=== PATIENT | female | born 1995 | race American Indian/Alaskan Native ===

== ENCOUNTER 2021-01-05 19:10 | Emergency (ER) | payer MEDICAID, OTHER ==
[2021-01-05 19:53] VITALS: BP 133/63
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
[2021-01-05] MEDS ORDERED: ACETAMINOPHEN 500 MG TAB PO ONE (21:20)
[2021-01-05] MEDS ORDERED: IBUPROFEN 600 MG TAB PO ONE (21:20)
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
== END 2021-01-05 23:42 | disposition home or self-care (01) ==
LOC: ED 19:10
DX: S13.9XXA Sprain of joints and ligaments of unspecified parts of neck, initial encounter (principal); S73.192A Other sprain of left hip, initial encounter; S00.83XA Contusion of other part of head, initial encounter; M62.830 Muscle spasm of back; M54.5 Low back pain; F17.200 Nicotine dependence, unspecified, uncomplicated; Z98.890 Other specified postprocedural states; Z79.899 Other long term (current) drug therapy; V29.9XXA Motorcycle rider (driver) (passenger) injured in unspecified traffic accident, initial encounter; Y93.89 Activity, other specified; Y92.488 Other paved roadways as the place of occurrence of the external cause; Y99.8 Other external cause status
CPT/HCPCS: 70450; 70486; 72040; 72100; 72125; 72170; 99284